=== PATIENT | female | born 1940 | race Caucasian/White ===

== ENCOUNTER 2024-01-10 17:25 | Emergency (ER) | payer MEDICARE, BC ==
[~2024-01-10] VITALS: Ht 167.6 cm; Wt 72.6 kg
[2024-01-10] MEDS ORDERED: Acetaminophen/Hydrocodone 5 MG/325 MG TABLET PO ONE (17:55)
== END 2024-01-10 21:28 | disposition short-term general hospital (02) ==
LOC: ED 17:25
DX: S72.491A Other fracture of lower end of right femur, initial encounter for closed fracture (principal); W10.8XXA Fall (on) (from) other stairs and steps, initial encounter; Y93.89 Activity, other specified; Y92.009 Unspecified place in unspecified non-institutional (private) residence as the place of occurrence of the external cause; Y99.8 Other external cause status

== ENCOUNTER 2025-01-16 20:02 | Inpatient (IN) | payer MEDICARE, BC ==
[~2025-01-16] VITALS: Ht 167.6 cm; Wt 86.9 kg
[2025-01-16 22:52] VITALS: BP 141/79
[2025-01-16] MEDS ORDERED: AMLODIPINE BESYL5 MG PO (22:57)
[2025-01-16] MEDS ORDERED: CEPHALEXIN500 M1 PO (22:59)
[2025-01-16] MEDS ORDERED: PERIDEX118 ML PO (23:01)
[2025-01-16] MEDS ORDERED: DULCOLAX STOOL100 M1 PO (23:03)
[2025-01-16] MEDS ORDERED: ELIQUIS5 M1 PO (23:03)
[2025-01-16] MEDS ORDERED: ESCITALOPRAM OX10 MG PO (23:04)
[2025-01-16] MEDS ORDERED: NATURE'S BLEND F1 MG PO (23:05)
[2025-01-16] MEDS ORDERED: FUROSEMIDE20 M1 PO (23:06)
[2025-01-16] MEDS ORDERED: RISPERDAL0.5 MG PO (23:07)
[2025-01-16] MEDS ORDERED: hydrOXYzine hydrochloride 50 MG/ML VIAL IM PRN (23:25)
[2025-01-16] MEDS ORDERED: LORazepam 1 MG TAB PO PRN (23:25)
[2025-01-16] MEDS ORDERED: Water, Sterile 10 ML VIAL IM PRN (23:25)
[2025-01-16] MEDS ORDERED: ACETAMINOPHEN 325 MG TAB PO PRN (23:30)
[2025-01-16] MEDS ORDERED: MG-AL HYDROXIDE/SIMETICONE 30 ML UDC PO PRN (23:30)
[2025-01-16] MEDS ORDERED: Menthol/Zinc Oxide 4 GM THIN T PRN (23:35)
[2025-01-17] MEDS ORDERED: DOCUSATE SODIUM 100 MG CAP PO PRN (02:10)
[2025-01-17 06:02] LABS: BUN 18 mg/dl (9-23); LDL CHOLESTEROL 93 mg/dL (9-159); SGPT/ALT 18 U/L (5-49)
[2025-01-17 06:03] LABS: VALPROIC ACID (DEPAKENE) < 3.0 ug/ml (50-100)
[2025-01-17 06:20] LABS: BASO # 0.1 10*3/uL (0.0-0.1); BASO % 1.0 % (0.0-1.0); EOS # 0.2 10*3/uL (0.0-0.4); EOS % 2.6 % (1.0-4.0); MEAN CELL VOLUME 98.9 fl (81.0-99.0); MEAN CORPUSCULAR HGB 32.3 pg (27.0-31.0); MEAN PLATELET VOLUME 11.0 fl (9.6-12.3); MONO # 0.9 10*3/uL (0.1-1.0); MONO % 13.1 % (3.0-9.0); NEUT # 4.1 10*3/uL (2.3-7.9); NEUT % 60.0 % (47.0-73.0); NUCLEATED RED BLOOD CELL 0.0 % (0.0-0.0); NUCLEATED RED BLOOD CELL 0.0 10*3/uL (0.0-0.0); PLATELET COUNT AUTOMATED 175 10*3/uL (130-400); RED CELL DISTRI WIDTH 13.6 % (0-14.5)
[2025-01-17 06:41] LABS: VITAMIN D, 25-HYDROXY 45.5 ng/mL (30-100)
[2025-01-17] MEDS ORDERED: risperiDONE 0.5 MG TAB PO SCH (08:00)
[2025-01-17 08:57] VITALS: BP 134/75
[2025-01-17] MEDS ORDERED: FOLIC ACID 1 MG TAB PO SCH (09:00)
[2025-01-17] MEDS ORDERED: DIVALPROEX SODIUM 125 MG TAB PO SCH (09:00)
[2025-01-17] MEDS ORDERED: Rivastigmine Tartrate 4.6 MG/24 HR PATCH T SCH ×2 (09:00)
[2025-01-17] MEDS ORDERED: APIXABAN 2.5 MG TABLET PO SCH (09:00)
[2025-01-17] MEDS ORDERED: FUROSEMIDE 20 MG TAB PO SCH (10:00)
[2025-01-17] MEDS ORDERED: CYANOCOBALAMIN 1,000 MCG/ML VIAL IM ONE (13:00)
[2025-01-17] MEDS ORDERED: Peridex 473 ML473 ML PO (13:04)
[2025-01-17] MEDS ORDERED: PETROLATUM 42% 100 GM JAR T PRN (17:55)
[2025-01-17 20:00] VITALS: BP 117/58
[2025-01-17] MEDS ORDERED: Memantine Hydrochloride 5 MG TAB PO SCH (21:00)
[2025-01-17] MEDS ORDERED: CEFDINIR 300 MG CAP PO SCH (21:00)
[2025-01-18 07:43] VITALS: BP 149/66
[2025-01-18 20:00] VITALS: BP 118/79
[2025-01-18] MEDS ORDERED: Memantine Hydrochloride 5 MG TAB PO SCH (21:00)
[2025-01-18] MEDS ORDERED: DIVALPROEX (DR) 250 MG TAB PO SCH (21:00)
[2025-01-19 08:00] VITALS: BP 134/66
[2025-01-19 20:00] VITALS: BP 117/68
[2025-01-20 07:50] VITALS: BP 137/72
[2025-01-20] MEDS ORDERED: Memantine Hydrochloride 5 MG TAB PO SCH (09:07)
[2025-01-20 20:00] VITALS: BP 119/61
[2025-01-21 08:00] VITALS: BP 137/66
[2025-01-21 20:00] VITALS: BP 123/86
[2025-01-22 06:26] LABS: BASO # 0.1 10*3/uL (0.0-0.1); BASO % 0.9 % (0.0-1.0); EOS # 0.2 10*3/uL (0.0-0.4); EOS % 3.3 % (1.0-4.0); MEAN CELL VOLUME 98.7 fl (81.0-99.0); MEAN CORPUSCULAR HGB 31.7 pg (27.0-31.0); MEAN PLATELET VOLUME 10.6 fl (9.6-12.3); MONO # 0.8 10*3/uL (0.1-1.0); MONO % 14.3 % (3.0-9.0); NEUT # 3.1 10*3/uL (2.3-7.9); NEUT % 53.6 % (47.0-73.0); NUCLEATED RED BLOOD CELL 0.0 % (0.0-0.0); NUCLEATED RED BLOOD CELL 0.0 10*3/uL (0.0-0.0); PLATELET COUNT AUTOMATED 181 10*3/uL (130-400); RED CELL DISTRI WIDTH 13.5 % (0-14.5)
[2025-01-22 07:01] LABS: BUN 19 mg/dl (9-23); SGPT/ALT 15 U/L (5-49); VALPROIC ACID (DEPAKENE) 28.2 ug/ml (50-100)
[2025-01-22 08:00] VITALS: BP 132/75
[2025-01-22] MEDS ORDERED: Rivastigmine Tartrate 9.5 MG/24 HR PATCH T SCH (09:00)
[2025-01-22] MEDS ORDERED: NAMENDA-5 PO (09:54)
[2025-01-22] MEDS ORDERED: RIVASTIGMINE1 EAC1 T (09:54)
[2025-01-22] MEDS ORDERED: MEMANTINE HCL10 MG PO (09:54)
[2025-01-22] MEDS ORDERED: RISPERIDONE0.5 MG PO (09:54)
[2025-01-22] MEDS ORDERED: DIVALPROEX SOD250 MG PO (09:54)
== END 2025-01-22 18:00 | DRG 883 ==
LOC: 3N 20:02
PROVIDERS: Counselor Professional; ADMIT Psychiatry & Neurology Psychiatry; ATTEND Psychiatry & Neurology Psychiatry
PROC: GZHZZZZ Group Psychotherapy (ICD-10-PCS; principal; 2025-01-17)
DX: F63.81 Intermittent explosive disorder (principal); N18.32 Chronic kidney disease, stage 3b; N30.00 Acute cystitis without hematuria; E72.20 Disorder of urea cycle metabolism, unspecified; G30.9 Alzheimer's disease, unspecified; F01.50 Vascular dementia, unspecified severity, without behavioral disturbance, psychotic disturbance, mood disturbance, and anxiety; F02.80 Dementia in other diseases classified elsewhere, unspecified severity, without behavioral disturbance, psychotic disturbance, mood disturbance, and anxiety; D75.89 Other specified diseases of blood and blood-forming organs; D50.9 Iron deficiency anemia, unspecified; I12.9 Hypertensive chronic kidney disease with stage 1 through stage 4 chronic kidney disease, or unspecified chronic kidney disease; Z90.49 Acquired absence of other specified parts of digestive tract; E03.9 Hypothyroidism, unspecified; Z86.718 Personal history of other venous thrombosis and embolism; Z79.01 Long term (current) use of anticoagulants; Z86.711 Personal history of pulmonary embolism